=== PATIENT | female | born 1960 | race Caucasian/White ===

== ENCOUNTER 2020-08-19 09:54 | Emergency (ER) | payer MEDICARE ==
[2020-08-19] MEDS ORDERED: Sodium Chloride 0.9% 1000 ML 1,000 ML IV STA (10:04)
[2020-08-19 10:14] VITALS: O2SAT 100
[2020-08-19] MEDS ORDERED: Sodium Chloride 0.9% 1000 ML 1,000 ML ONE (10:20)
[2020-08-19 10:28] LABS: Absolute Neutrophil Ct (ANC) 3.12 (1.4-6.9); Basophil (Absolute #) 0.05 (0-0.4); Eosinophil % 1.8 % (0.00-5.0); Eosinophil (Absolute #) 0.09 (0-0.5); Hematocrit 45.8 % (35-47); Lymphocytes % 29.2 % (24.0-44.0); Mean Cell Volume 93.3 fl (78-100); Mean Corpuscular Hemoglobin 30.5 pg (26-32); Mean Corpuscular Hgb Concent. 32.8 g/dl (32-36); Monocyte (Absolute #) 0.37 (0.0-1.3); Monocytes % 7.2 % (0.0-12.0); Neutrophil % 60.8 % (36.0-66.0); Platelet Count 223 K/mm3 (150-450); Red Blood Count 4.91 M/mm3 (4.1-5.4); Red Cell Distribution Width 13.7 % (11.5-14.0); White Blood Count 5.1 K/mm3 (4.0-10.5)
[2020-08-19 10:29] LABS: INR 1.07 (0.8-3.0); PROTIME 12.1 SECONDS (9.95-12.35)
[2020-08-19 10:35] LABS: Potassium 3.8 mmol/L (3.5-5.1)
--- NOTE | 2020-08-19 10:35 | XRAY ---
Indication: Palpitations. Nausea. Comparison: None Portable chest demonstrates normal heart and lungs. Bony thorax intact with minimal degenerative changes.
[2020-08-19 10:43] LABS: ALBUMIN 4.5 g/dL (3.5-5.0); ALKALINE PHOSPHATASE 59 U/L (38-126); AMYLASE 57 U/L (30-110); BLOOD UREA NITROGEN 15 mg/dL (7-17); CHLORIDE 105 mmol/L (98-107); Calcium 9.9 mg/dL (8.4-10.2); Carbon Dioxide 28 mmol/L (22-30); Creatinine 1 0.73 mg/dL (0.52-1.04); EST GLOMERULAR FILTRATION RATE > 60.0 ML/MIN; Glucose 129 mg/dL (74-106); LIPASE 58 U/L (23-300); NT PRO BNP 302 pg/mL (0-900); SGOT/AST 27 U/L (14-36); SGPT/ALT 19 U/L (0-35); SODIUM 139 mmol/L (137-145); Total Protein 7.4 g/dL (6.3-8.2)
[2020-08-19 10:44] LABS: ANION GAP 9.8 MEQ/L (5-15)
--- NOTE | 2020-08-19 11:03 | ERPHSYRPT ---
- History of Present Illness Time Seen by Provider: 08/19/20 10:05 Historian: patient Exam Limitations: no limitations Patient Subjective Stated Complaint: Pt c/o of heart feeling as if it has palpatations and left jaw and arm pain, pt states that her pulse is usually high 40's adn low 50's Triage Nursing Assessment: Pt brought to the ER by her , upon arrival pt was tachycardia and is now at 70, hypertension, pulses normal, no edema, rates jaw and upper arm pain as 3/10, skin n/w/d, was nauseaous earlier, doesn't appear to be in any distress Physician History: Is a 60-year-old female who presents with the onset of palpitations 2 hours prior to arrival. She noticed her heart was irregular and fast her heart started slowing down on the trip to the hospital. She had complained of some pain and discomfort in her left jaw and left arm while the palpitations were ongoing. She has had this before the most recent episode was approximately 2 years ago. She has had 4 episodes of the last 4 years and 4 years ago she did have a stent placed in her LAD for a 95% stenotic lesion. The wet sander is Dr. Jorge Lennon at [facility] in [place]. She did have some nausea associated with this episode but no vomiting no diaphoresis and no shortness of breath. Cardiac risk factors for her known coronary artery disease include hypertension family history and cholesterol. Timing/Duration: today, hour(s) (4) Activities at Onset: none Quality: pressure Location: substernal Chest Pain Radiation: jaw, arm Severity of Pain-Max: moderate Severity of Pain-Current: moderate Modifying Factors: Improves With: nothing Prior Chest Pain/Cardiac Workup: cardiac cath (Patient had a cardiac cath and a stent placed in the LAD) Nitro Today/Relief: no nitro taken today Aspirin Treatment Today: 81 mg x 1 Allergies/Adverse Reactions: Sulfa (Sulfonamide Antibiotics) Allergy (Verified 08/19/20 10:15) Home Medications: ALPRAZolam [Alprazolam] 0.5 mg PO HS 08/19/20 [History] Amlodipine Besylate 5 mg [Norvasc 5 mg] 5 mg PO DAILY 08/19/20 [History] Lisinopril/Hydrochlorothiazide [Lisinopril-Hctz 20-12.5 mg Tab] 1 each PO DAILY 08/19/20 [History] PANTOPRAZOLE 40 mg Tablet [Protonix 40MG Tablet] 40 mg PO QAM 08/19/20 [History] Travel Risk - International Travel Have you traveled outside of the country in past 3 weeks: No - Coronavirus Screening Are you exhibiting any of the following symptoms?: No Close contact with a COVID-19 positive Pt in past 14-21 Days: No - Review of Systems Constitutional: No Fever, No Chills Eyes: No Symptoms Ears, Nose, & Throat: No Symptoms Respiratory: No Cough, No Dyspnea Cardiac: Chest Pain, Palpitations, No Edema, No Syncope Abdominal/Gastrointestinal: No Abdominal Pain, No Nausea, No Vomiting, No Diarrhea Genitourinary Symptoms: No Dysuria Musculoskeletal: No Back Pain, No Neck Pain Skin: No Rash Neurological: No Dizziness, No Focal Weakness, No Sensory Changes Psychological: No Symptoms Endocrine: No Symptoms All Other Systems: Reviewed and Negative - Past Medical History Pertinent Past Medical History: Yes Neurological History: No Pertinent History Cardiac History: High Cholesterol, Hypertension Respiratory History: No Pertinent History Endocrine Medical History: No Pertinent History Musculoskeletal History: No Pertinent History Other Medical History: gall bladder issues, gastorenteritis - Past Surgical History Past Surgical History: Yes Musculoskeletal: Other Female Surgical History: Section Other Surgical History: 3 back surgeries - Social History Smoking Status: Never smoker Exposure to second hand smoke: No Drug Use: none Patient Lives Alone: No - Nursing Vital Signs Nursing Vital Signs: Initial Vital Signs Temperature 98.4 F 08/19/20 09:59 Pulse Rate 76 08/19/20 09:59 Respiratory Rate 14 08/19/20 09:59 Blood Pressure 147/94 08/19/20 09:59 O2 Sat by Pulse Oximetry 100 08/19/20 09:59 Pain Scale Pain Intensity 3 - Physical Exam General Appearance: mild distress Eye Exam: PERRL/EOMI, eyes nml inspection Ears, Nose, Throat Exam: normal ENT inspection, moist mucous membranes Neck Exam: normal inspection, non-tender, supple, full range of motion Respiratory Exam: normal breath sounds, lungs clear, No respiratory distress Cardiovascular Exam: regular rate/rhythm, normal heart sounds, other (Palpitations had resolved by the time she was in the emergency room) Gastrointestinal/Abdomen Exam: soft, No tenderness, No mass Back Exam: normal inspection, No CVA tenderness, No vertebral tenderness Extremity Exam: normal inspection, normal range of motion Neurologic Exam: alert, oriented x 3, cooperative, normal mood/affect, sensation nml, No motor deficits SpO2: 100 - Course Nursing assessment & vital signs reviewed: Yes EKG Interpreted by Me: RATE (100), Sinus Tach, Left Connell Deviation, NORMAL INTERVALS, NORMAL QRS, Non-specific ST Changes - Radiology Exams Chest X-ray Interpretation: Negative Ordered Tests: Active Orders 24 hr Category Date Time Status Manufacturing Controls Engineer STAT Care 08/19/20 10:06 Active EKG-ER Only STAT Care 08/19/20 10:04 Active IV Insertion STAT Care 08/19/20 10:04 Active CHEST 1 VIEW (PORTABLE) Stat Exams 08/19/20 10:06 Completed AMYLASE Stat Lab 08/19/20 10:20 Completed CBC W DIFF Stat Lab 08/19/20 10:20 Completed CMP Stat Lab 08/19/20 10:20 Completed D-DIMER QUANTITATIVE Stat Lab 08/19/20 10:20 Completed LIPASE Stat Lab 08/19/20 10:20 Completed Lactic Acid Stat Lab 08/19/20 10:04 Completed MAGNESIUM Stat Lab 08/19/20 10:20 Completed NT PRO BNP Stat Lab 08/19/20 10:20 Completed PROTIME WITH INR Stat Lab 08/19/20 10:20 Completed TROPONIN Q3H Lab 08/19/20 10:20 Completed TROPONIN Q3H Lab 08/19/20 13:15 Ordered TROPONIN Q3H Lab 08/19/20 16:15 Ordered TROPONIN Q3H Lab 08/19/20 19:15 Ordered TROPONIN Q3H Lab 08/19/20 22:15 Ordered UA W/RFX UR CULTURE Stat Lab 08/19/20 10:05 Ordered Medication Summary Discontinued Medications Generic Name Dose Route Start Last Admin Trade Name Freq PRN Reason Stop Dose Admin Sodium Chloride 1,000 mls @ 999 mls/hr 08/19/20 10:04 08/19/20 12:05 Sodium Chloride 0.9% 1000 Ml IV 08/19/20 11:04 Infused .Q1H1M STA Infusion Sodium Chloride Confirm 08/19/20 10:20 Sodium Chloride 0.9% 1000 Ml Administered 08/19/20 10:21 Dose 1,000 mls @ ud .ROUTE .K-MED ONE Lab/Rad Data: Laboratory Result Diagrams 08/19/20 10:20 08/19/20 10:20 Laboratory Results 08/19/20 08/19/20 08/19/20 Range/Units 10:20 10:20 10:20 WBC (4.0-10.5) K/mm3 RBC (4.1-5.4) M/mm3 Hgb (12.0-16.0) gm/dl Hct (35-47) % MCV (78-100) fl MCH (26-32) pg MCHC (32-36) g/dl RDW (11.5-14.0) % Plt Count (150-450) K/mm3 MPV (7.5-11.0) fl Gran % (36.0-66.0) % Eos # (Auto) (0-0.5) Absolute Lymphs (auto) (1.0-4.6) Absolute Monos (auto) (0.0-1.3) Lymphocytes % (24.0-44.0) % Monocytes % (0.0-12.0) % Eosinophils % (0.00-5.0) % Basophils % (0.0-0.4) % Absolute Granulocytes (1.4-6.9) Basophils # (0-0.4) PT 12.1 (9.95-12.35) SECONDS INR 1.07 (0.8-3.0) D-Dimer 475 (215-500) ng/mL Sodium 139 (137-145) mmol/L Potassium 3.8 (3.5-5.1) mmol/L Chloride 105 (98-107) mmol/L Carbon Dioxide 28 (22-30) mmol/L Anion Gap 9.8 (5-15) MEQ/L BUN 15 (7-17) mg/dL Creatinine 0.73 (0.52-1.04) mg/dL Estimated GFR > 60.0 ML/MIN Glucose 129 H (74-106) mg/dL Lactic Acid (0.4-2.0) Calcium 9.9 (8.4-10.2) mg/dL Magnesium 2.0 (1.6-2.3) mg/dL Total Bilirubin 1.40 H (0.2-1.3) mg/dL AST 27 (14-36) U/L ALT 19 (0-35) U/L Alkaline Phosphatase 59 (38-126) U/L Troponin I < 0.012 (0.000-0.034) ng/mL NT-Pro-B Natriuret Pep 302 (0-900) pg/mL Serum Total Protein 7.4 (6.3-8.2) g/dL Albumin 4.5 (3.5-5.0) g/dL Amylase 57 (30-110) U/L Lipase 58 (23-300) U/L 08/19/20 08/19/20 Range/Units 10:20 10:04 WBC 5.1 (4.0-10.5) K/mm3 RBC 4.91 (4.1-5.4) M/mm3 Hgb 15.0 (12.0-16.0) gm/dl Hct 45.8 (35-47) % MCV 93.3 (78-100) fl MCH 30.5 (26-32) pg MCHC 32.8 (32-36) g/dl RDW 13.7 (11.5-14.0) % Plt Count 223 (150-450) K/mm3 MPV 11.0 (7.5-11.0) fl Gran % 60.8 (36.0-66.0) % Eos # (Auto) 0.09 (0-0.5) Absolute Lymphs (auto) 1.50 (1.0-4.6) Absolute Monos (auto) 0.37 (0.0-1.3) Lymphocytes % 29.2 (24.0-44.0) % Monocytes % 7.2 (0.0-12.0) % Eosinophils % 1.8 (0.00-5.0) % Basophils % 1.0 (0.0-0.4) % Absolute Granulocytes 3.12 (1.4-6.9) Basophils # 0.05 (0-0.4) PT (9.95-12.35) SECONDS INR (0.8-3.0) D-Dimer (215-500) ng/mL Sodium (137-145) mmol/L Potassium (3.5-5.1) mmol/L Chloride (98-107) mmol/L Carbon Dioxide (22-30) mmol/L Anion Gap (5-15) MEQ/L BUN (7-17) mg/dL Creatinine (0.52-1.04) mg/dL Estimated GFR ML/MIN Glucose (74-106) mg/dL Lactic Acid 1.3 (0.4-2.0) Calcium (8.4-10.2) mg/dL Magnesium (1.6-2.3) mg/dL Total Bilirubin (0.2-1.3) mg/dL AST (14-36) U/L ALT (0-35) U/L Alkaline Phosphatase (38-126) U/L Troponin I (0.000-0.034) ng/mL NT-Pro-B Natriuret Pep (0-900) pg/mL Serum Total Protein (6.3-8.2) g/dL Albumin (3.5-5.0) g/dL Amylase (30-110) U/L Lipase (23-300) U/L - Progress Progress: improved Air Movement: good Blood Culture(s) Obtained: No Antibiotics given: No Discussed with DrTerri: Other (Dr. Jorge Lennon at [facility] will reiew labs ok to discharge per nurse) - Departure Departure Disposition: Home Clinical Impression: Palpitations Condition: Stable Critical Care Time: No Referrals: BIRGIT MARTINEZ [Primary Care Provider] - Instructions: Palpitations (DC)
[2020-08-19 12:33] VITALS: BP 129/73; PULSE 50
== END 2020-08-19 12:25 | disposition home or self-care (01) ==
LOC: ED 09:54
DX: R00.0 Tachycardia, unspecified (principal); R07.9 Chest pain, unspecified; I10 Essential (primary) hypertension; R68.84 Jaw pain; M79.602 Pain in left arm; R11.0 Nausea; E78.5 Hyperlipidemia, unspecified; Z79.899 Other long term (current) drug therapy
CPT/HCPCS: 36000; 36415; 71045; 80053; 82150; 83605; 83690; 83735; 83880; 84484; 85025; 85379; 85610; 93005; 93041; 96360; 99284

== ENCOUNTER 2022-03-31 11:32 | Emergency (ER) | payer MEDICARE ==
--- NOTE | 2022-03-31 11:36 | ERPHSYRPT ---
- History of Present Illness Time Seen by Provider: 03/31/22 11:36 Historian: patient Exam Limitations: no limitations Physician History: This is a 62-year-old morbidly obese white female patient of Dr. Juarez and [place] pool lifeguard Dr. Lennon and presents with left anterior chest pain that is described as sharp and radiating to the left arm that occurred just prior to arrival. In the last couple weeks, patient states that she has been under a lot of stress. She thinks that this may be the cause of her symptoms. However, she does have cardiac stents in place and has a history of coronary artery disease. She also has a history of anxiety, hypertension and gastroesophageal reflux disease. She does not have an appointment to see her pool lifeguard until June 2022. Patient states that she is chronically bradycardic. She states that her pool lifeguard is aware of this. Timing/Duration: today Activities at Onset: none Quality: sharpness Location: other (Left anterior chest) Chest Pain Radiation: arm Severity of Pain-Max: mild Severity of Pain-Current: mild Associated Symptoms: denies symptoms Prior Chest Pain/Cardiac Workup: cardiac cath, heart attack Nitro Today/Relief: no nitro taken today Aspirin Treatment Today: 81 mg x 4, provided by ED Allergies/Adverse Reactions: Sulfa (Sulfonamide Antibiotics) Allergy (Verified 08/19/20 10:15) Home Medications: ALPRAZolam [Alprazolam] 0.5 mg PO HS 08/19/20 [History] Amlodipine Besylate 5 mg [Norvasc 5 mg] 5 mg PO DAILY 08/19/20 [History] Lisinopril/Hydrochlorothiazide [Lisinopril-Hctz 20-12.5 mg Tab] 1 each PO DAILY 08/19/20 [History] PANTOPRAZOLE 40 mg Tablet [Protonix 40MG Tablet] 40 mg PO QAM 08/19/20 [History] Travel Risk - International Travel Have you traveled outside of the country in past 3 weeks: No - Coronavirus Screening Are you exhibiting any of the following symptoms?: No Close contact with a COVID-19 positive Pt in past 14-21 Days: No - Review of Systems Constitutional: No Symptoms Eyes: No Symptoms Ears, Nose, & Throat: No Symptoms, Throat Swelling Cardiac: Chest Pain Abdominal/Gastrointestinal: No Symptoms Genitourinary Symptoms: No Symptoms Musculoskeletal: No Symptoms Skin: No Symptoms Neurological: No Symptoms Psychological: No Symptoms Endocrine: No Symptoms Hematologic/Lymphatic: No Symptoms Immunological/Allergic: No Symptoms All Other Systems: Reviewed and Negative - Past Medical History Pertinent Past Medical History: Yes Neurological History: No Pertinent History Cardiac History: High Cholesterol, Hypertension Respiratory History: No Pertinent History Endocrine Medical History: No Pertinent History Musculoskeletal History: No Pertinent History Other Medical History: gall bladder issues, gastorenteritis - Past Surgical History Past Surgical History: Yes Musculoskeletal: Other Female Surgical History: Section Other Surgical History: 3 back surgeries - Social History Smoking Status: Never smoker Exposure to second hand smoke: No Drug Use: none Patient Lives Alone: No - Nursing Vital Signs Nursing Vital Signs: Initial Vital Signs Temperature 97.8 F 03/31/22 11:33 Pulse Rate 56 L 03/31/22 11:33 Respiratory Rate 20 03/31/22 11:33 Blood Pressure 170/91 03/31/22 11:33 O2 Sat by Pulse Oximetry 94 L 03/31/22 11:33 Pain Scale Pain Intensity 0 - Physical Exam General Appearance: no apparent distress, alert, anxiety, obese Eye Exam: PERRL/EOMI, eyes nml inspection Ears, Nose, Throat Exam: normal ENT inspection, moist mucous membranes Neck Exam: normal inspection, non-tender, supple, full range of motion Respiratory Exam: normal breath sounds, chest tenderness, lungs clear, No respiratory distress, No airway intact Cardiovascular Exam: regular rate/rhythm, normal heart sounds, normal peripheral pulses Gastrointestinal/Abdomen Exam: No tenderness Pelvic Exam: not done Rectal Exam: not done Back Exam: normal inspection, normal range of motion, No CVA tenderness, No vertebral tenderness Extremity Exam: normal inspection, normal range of motion, pelvis stable Neurologic Exam: alert, oriented x 3, cooperative, business support coordinator II-XII nml as tested, normal mood/affect, nml cerebellar function, nml station & gait, sensation nml Skin Exam: normal color, warm, dry Lymphatic Exam: No adenopathy SpO2 Interpretation: normal O2 Delivery: Room Air - Course Nursing assessment & vital signs reviewed: Yes EKG Interpreted by Me: RATE (51), Left Page Deviation (Borderline), NORMAL INTERVALS, NORMAL QRS, Non-specific ST Changes, Other (There are no acute ischemic changes on today's EKG.) Ordered Tests: Active Orders 24 hr Category Date Time Status Engineering Secretary STAT Care 03/31/22 11:48 Active EKG-ER Only STAT Care 03/31/22 11:46 Active EKG-ER Only STAT Care 03/31/22 14:45 Active IV Insertion STAT Care 03/31/22 11:46 Active Pulse Oximetry (ED) STAT Care 03/31/22 11:46 Active CHEST 1 VIEW (PORTABLE) Stat Exams 03/31/22 11:47 Completed CBC W DIFF Stat Lab 03/31/22 11:45 Completed CMP Stat Lab 03/31/22 11:45 Completed D-DIMER QUANTITATIVE Stat Lab 03/31/22 11:45 Completed TROPONIN Q4H Lab 03/31/22 11:45 Completed TROPONIN Q4H Lab 03/31/22 14:44 Completed TROPONIN Q4H Lab 03/31/22 20:00 Ordered Medication Summary Discontinued Medications Generic Name Dose Route Start Last Admin Trade Name Freq PRN Reason Stop Dose Admin Aspirin 324 mg 03/31/22 11:46 03/31/22 12:03 Aspirin 81 Mg Tab.Chew PO 03/31/22 11:47 324 mg STAT ONE Administration Lab/Rad Data: Laboratory Result Diagrams 03/31/22 11:45 03/31/22 11:45 Laboratory Results 03/31/22 03/31/22 03/31/22 Range/Units 14:44 11:45 11:45 WBC (4.0-10.5) x10^3/uL RBC (4.1-5.4) x10^6/uL Hgb (12.0-16.0) g/dL Hct (35-47) % MCV (78-100) fL MCH (26-32) pg MCHC (32-36) g/dL RDW (11.5-14.0) % Plt Count (150-450) x10^3/uL MPV (7.5-11.0) fL Gran % (36.0-66.0) % Immature Gran % (Auto) (0.00-0.4) % Nucleat RBC Rel Count (0.00-0.1) % Eos # (Auto) (0-0.5) x10^3/uL Immature Gran # (Auto) (0.00-0.03) x10^3u/L Absolute Lymphs (auto) (1.0-4.6) x10^3/uL Absolute Monos (auto) (0.0-1.3) x10^3/uL Absolute Nucleated RBC (0.00-0.01) x10^3u/L Lymphocytes % (24.0-44.0) % Monocytes % (0.0-12.0) % Eosinophils % (0.00-5.0) % Basophils % (0.0-0.4) % Absolute Granulocytes (1.4-6.9) x10^3/uL Basophils # (0-0.4) x10^3/uL D-Dimer 0.22 (0.0-0.50) mg/L Sodium (137-145) mmol/L Potassium (3.5-5.1) mmol/L Chloride (98-107) mmol/L Carbon Dioxide (22-30) mmol/L Anion Gap (5-15) MEQ/L BUN (7-17) mg/dL Creatinine (0.52-1.04) mg/dL Estimated GFR ML/MIN Glucose (74-106) mg/dL Calcium (8.4-10.2) mg/dL Total Bilirubin (0.2-1.3) mg/dL AST (14-36) U/L ALT (0-35) U/L Alkaline Phosphatase (38-126) U/L Troponin I < 0.012 < 0.012 (0.000-0.034) ng/mL Serum Total Protein (6.3-8.2) g/dL Albumin (3.5-5.0) g/dL 03/31/22 03/31/22 Range/Units 11:45 11:45 WBC 4.0 (4.0-10.5) x10^3/uL RBC 4.27 (4.1-5.4) x10^6/uL Hgb 13.4 (12.0-16.0) g/dL Hct 40.6 (35-47) % MCV 95.1 (78-100) fL MCH 31.4 (26-32) pg MCHC 33.0 (32-36) g/dL RDW 13.8 (11.5-14.0) % Plt Count 205 (150-450) x10^3/uL MPV 10.1 (7.5-11.0) fL Gran % 43.9 (36.0-66.0) % Immature Gran % (Auto) 0.2 (0.00-0.4) % Nucleat RBC Rel Count 0.0 (0.00-0.1) % Eos # (Auto) 0.07 (0-0.5) x10^3/uL Immature Gran # (Auto) 0.01 (0.00-0.03) x10^3u/L Absolute Lymphs (auto) 1.68 (1.0-4.6) x10^3/uL Absolute Monos (auto) 0.45 (0.0-1.3) x10^3/uL Absolute Nucleated RBC 0.00 (0.00-0.01) x10^3u/L Lymphocytes % 41.6 (24.0-44.0) % Monocytes % 11.1 (0.0-12.0) % Eosinophils % 1.7 (0.00-5.0) % Basophils % 1.5 (0.0-0.4) % Absolute Granulocytes 1.77 (1.4-6.9) x10^3/uL Basophils # 0.06 (0-0.4) x10^3/uL D-Dimer (0.0-0.50) mg/L Sodium 141 (137-145) mmol/L Potassium 4.0 (3.5-5.1) mmol/L Chloride 106 (98-107) mmol/L Carbon Dioxide 28 (22-30) mmol/L Anion Gap 10.4 (5-15) MEQ/L BUN 17 (7-17) mg/dL Creatinine 0.83 (0.52-1.04) mg/dL Estimated GFR > 60.0 ML/MIN Glucose 110 H (74-106) mg/dL Calcium 9.3 (8.4-10.2) mg/dL Total Bilirubin 1.40 H (0.2-1.3) mg/dL AST 39 H (14-36) U/L ALT 35 (0-35) U/L Alkaline Phosphatase 50 (38-126) U/L Troponin I (0.000-0.034) ng/mL Serum Total Protein 6.5 (6.3-8.2) g/dL Albumin 4.3 (3.5-5.0) g/dL - Progress Progress: improved, re-examined Air Movement: good Progress Note: 03/31/22 15:34 Chest x-ray shows no acute cardiopulmonary process. Medical decision making: I feel this patient can be discharged to home if her 3- hour EKG and troponin show no evidence of any acute ischemic changes. Patient's chest pain symptoms have resolved. She is under a lot of stress per her report. I called Dr. Lennon's office, the patient's pool lifeguard at [phone] and spoke with his regional administrative assistant. Dr. Lennon is in the cardiac [place] per her report and she will get a message to him and we are awaiting his call back. 03/31/22 16:44 Dr. Lennon has not called back yet. We will make a phone call to the office. 03/31/22 17:12 Medical decision making: Dr. Lennon still has not called back yet. We made another phone call to the office. The nurse stated that there is no way she can contact Dr. Lennon. The patient and significant other do not want a wait any longer for him to call back. Patient has been hemodynamically stable. She again reports that she has chronic bradycardia and her pool lifeguard is aware of that. I believe she is stable to be discharged to home. We did attempt to co ntact Dr. Lennon as well as attempted to move her appointment up earlier. The office stated that we needed to call scheduling to make that move. However, when we called the scheduling office they were now closed. Patient is to call Dr. Lennon's office tomorrow morning, 04/01/2022 and asked to see a PA or nurse practitioner. I am having the patient's sign a form stating that they did not want to wait for Dr. Lennon to call back. I do believe the patient is stable enough to be discharged to home. Blood Culture(s) Obtained: No Antibiotics given: No Counseled pt/family regarding: lab results, diagnosis, need for follow-up, rad results - Departure Departure Disposition: Home Clinical Impression: Chronic sinus bradycardia, Palpitations Condition: Stable Critical Care Time: No Referrals: BIRGIT JUAREZ [Primary Care Provider] - Follow up/PCP as directed
[2022-03-31] MEDS ORDERED: BABY ASPIRIN 81 MG CHEW PO ONE (11:46)
[2022-03-31 11:56] LABS: Absolute Neutrophil Ct (ANC) 1.77 x10^3/uL (1.4-6.9); Basophil (Absolute #) 0.06 x10^3/uL (0-0.4); Eosinophil % 1.7 % (0.00-5.0); Eosinophil (Absolute #) 0.07 x10^3/uL (0-0.5); Hematocrit 40.6 % (35-47); Hemoglobin 13.4 g/dL (12.0-16.0); Lymphocyte (Absolute #) 1.68 x10^3/uL (1.0-4.6); Lymphocytes % 41.6 % (24.0-44.0); Mean Cell Volume 95.1 fL (78-100); Mean Corpuscular Hemoglobin 31.4 pg (26-32); Mean Platelet Volume 10.1 fL (7.5-11.0); Monocyte (Absolute #) 0.45 x10^3/uL (0.0-1.3); Monocytes % 11.1 % (0.0-12.0); Neutrophil % 43.9 % (36.0-66.0); Platelet Count 205 x10^3/uL (150-450); Red Blood Count 4.27 x10^6/uL (4.1-5.4); Red Cell Distribution Width 13.8 % (11.5-14.0)
--- NOTE | 2022-03-31 12:02 | XRAY ---
Indication: Chest pain. Comparison: August 19, 2020 Portable chest again demonstrates normal heart and lungs. Bony thorax intact with minimal degenerative changes. No new/acute findings.
[2022-03-31 12:11] LABS: ALBUMIN 4.3 g/dL (3.5-5.0); ALKALINE PHOSPHATASE 50 U/L (38-126); ANION GAP 10.4 MEQ/L (5-15); BLOOD UREA NITROGEN 17 mg/dL (7-17); CHLORIDE 106 mmol/L (98-107); Calcium 9.3 mg/dL (8.4-10.2); Carbon Dioxide 28 mmol/L (22-30); Creatinine 1 0.83 mg/dL (0.52-1.04); EST GLOMERULAR FILTRATION RATE > 60.0 ML/MIN; Glucose 110 mg/dL (74-106); SGOT/AST 39 U/L (14-36); SGPT/ALT 35 U/L (0-35); SODIUM 141 mmol/L (137-145); Total Protein 6.5 g/dL (6.3-8.2)
[2022-03-31 14:29] VITALS: O2SAT 98
[2022-03-31 17:13] VITALS: BP 154/88; PULSE 42
== END 2022-03-31 17:31 | disposition home or self-care (01) ==
LOC: ED 11:32
DX: R00.1 Bradycardia, unspecified (principal); R00.2 Palpitations; R07.9 Chest pain, unspecified; I10 Essential (primary) hypertension; E78.5 Hyperlipidemia, unspecified; Z79.899 Other long term (current) drug therapy
CPT/HCPCS: 36000; 36415; 71045; 80053; 84484; 85025; 85379; 93005; 93041; 94760; 99284; A9270-GY